=== PATIENT | male | born 1990 | race Caucasian/White ===

== ENCOUNTER 2017-07-04 15:31 | Emergency (ER) | payer SELFPAY ==
--- NOTE | 2017-07-04 15:43 | ED Physician Documentation ---
Sore Throat/Dental Pain - HISTORIAN Historian: patient - HPI Chief Complaint: Dental Pain Context: Abscess, Dental Caries Further Comments: yes (27 year old male patient presents with complaints of dental pain in left bottom molars. Worse over past 2 days.) - ROS CONST: no problems CVS/RESP: none GI/: denies: problems urinating, nausea, vomiting, other MS/SKIN/LYMPH: denies: muscle aches NEURO/PSYCH: none - PAST HX Past History: gum disease Other History: none Allergies/Adverse Reactions: Allergies Allergy/AdvReac Type Severity Reaction Status Date / Time No Known Allergies Allergy Unverified 07/04/17 15:45 Home Medications: Ambulatory Orders Medication Instructions Recorded Mupirocin [Bactroban] 1 appl TP BID #1 tube 07/04/17 ED Results Lab/Radiology - Orders Orders: ED Orders Category Date Time Status Diph,Pertuss(Acell),Tet Vac/Pf [Adacel] Med 07/04/17 15:41 Discontinued 0.5 ml IM .ONCE ONE Lidocaine 1% 5ml(IM or SUTURE) [Xylocaine] Med 07/04/17 15:41 Discontinued 50 mg IJ NOW ONE Discharge Clincal Impression: Dental caries Prescriptions: Mupirocin [Bactroban] 1 appl TP BID #1 tube Referrals: Primary Doctor,No [Primary Care Provider] - 2 Days Additional Instructions: Dental Pain Ibuprofen 800mg every 8 hours x 3 days Tylenol 650-1000mg every 4 hours as needed for pain, limit your dose to 4G in 24 hours. Over the counter DenTek - follow package directions. 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 See your dentist as soon as possible Condition: Stable Disposition: 01 HOME, SELF-CARE Decision to Admit: NO Decision Time: 15:42
[2017-07-04] MEDS: Lidocaine 1% 5ml(IM or SUTURE)(PAIN CLINIC) IJ ONE (16:03)
[2017-07-04] MEDS: DIPH,PERTUSS(ACELL),TET VAC/PF 0.5 ML DISP.SYRIN IM ONE (16:12)
[2017-07-04 16:24] VITALS: BP 120/68
--- NOTE | 2017-07-04 16:55 | ED Physician Documentation ---
General Adult - HISTORIAN Historian: patient - HPI Stated Complaint: Laceration Chief Complaint: Laceration/Recheck/Suture Further Comments: yes (27 year old male patient presents with complaint of left hand laceration. Cut on board on floor of grain bin. Last tetanus unknown.) - ROS CONST: no problems EYES/ENT: none CVS/RESP: none GI/: none MS/SKIN/LYMPH: none NEURO/PSYCH: denies: headache - PAST HX Past History: none Allergies/Adverse Reactions: Allergies Allergy/AdvReac Type Severity Reaction Status Date / Time No Known Allergies Allergy Unverified 07/04/17 15:45 Home Medications: Ambulatory Orders Medication Instructions Recorded Mupirocin [Bactroban] 1 appl TP BID #1 tube 07/04/17 - SOCIAL HX Smoking History: non-smoker - FAMILY HX Family History: No - VITAL SIGNS Vital Signs: Vital Signs Temp Pulse Resp BP Pulse Ox 98.1 F 78 18 120/68 98 07/04/17 15:35 07/04/17 16:22 07/04/17 16:22 07/04/17 16:22 07/04/17 16:22 - REVIEWED ASSESSMENTS Nursing Assessment Reviewed: Yes Vitals Reviewed: Yes Procedures Wound Location: other (left hand) Wound's Depth, Shape: linear Wound Explored: clean Irrigated w/ Saline (ccs): 500 Betadine Prep?: No Anesthesia: Other (chlorhexadine) Volume of Anesthetic: 5cc Wound Repaired With: sutures Suture Size/Type: 5:0 Number of Sutures: 6 Layer Closure?: No Sterile Dressing Applied?: Yes Progress - Progress Progress: Wound cleaned with chlorhexadine; anesthetized with 1% lidocaine and neut - 5 cc. Irrigated with 500cc NS, hand scrubbed clean. Patient tolerated procedure well. Edges well approximated. Reviewed discharge instructions, verbalized understanding. ED Results Lab/Radiology - Orders Orders: ED Orders Category Date Time Status Apply/change dressing NOW Care 07/04/17 16:11 Active Diph,Pertuss(Acell),Tet Vac/Pf [Adacel] Med 07/04/17 15:41 Discontinued 0.5 ml IM .ONCE ONE Lidocaine 1% 5ml(IM or SUTURE) [Xylocaine] Med 07/04/17 15:41 Discontinued 50 mg IJ NOW ONE General Adult Physical Exam - PHYSICAL EXAM GENERAL APPEARANCE: mild distress EENT: eye inspection normal, SONYA RESPIRATORY: no resp distress CVS: reg rate & rhythm SKIN: warm/dry, normal color, other (left hand with 4 cm laceration to dorsal aspect) EXTREMITIES: non-tender, normal range of motion, no evidence of injury, no edema , J, FIRE [employer]ARD[employer] NEURO: oriented X3, motor nml, sensation nml, mood/affect nml Discharge Clincal Impression: Laceration of hand Qualifiers: Encounter type: initial encounter Foreign body presence: without foreign body Laterality: left Qualified Code(s): S61.412A - Laceration without foreign body of left hand, initial encounter Clincal Impression: (Ruled Out): Dental caries Prescriptions: Mupirocin [Bactroban] 1 appl TP BID #1 tube Additional Instructions: Keep the wound clean and dry until it has healed. You can wash or shower after 24 hours. Do not soak the wound in water and make sure it is dry afterwards (gently pat the area dry with a clean towel). Do not get into a swimming pool, hot tub, jade or river until your stitches are removed. To remove your dressing, gently pull it off. If needed, you can dampen it with water then gently pull it off. Clean the laceration twice a day with hibiclens and rinse with water clean away any scabbed area Apply thin coat of antibiotic ointment after cleaning the wound. Cover with non-adherent bandage if able. If you have pain, take simple pain relief medication such as Tylenol or ibuprofen. If bandages or dressings get wet, they will need to be changed. Call your doctor for any signs of symptom of infection redness, drainage, pain. Have your stitches removed at your doctors office in 7-10 days. Discharged with bactroban ointment apply a thin coat twice a day. Condition: Stable Disposition: 01 HOME, SELF-CARE Decision to Admit: NO Decision Time: 16:20
== END 2017-07-04 16:22 | disposition home or self-care (01) ==
LOC: ED 15:31
DX: S61.412A Laceration without foreign body of left hand, initial encounter (principal); X58.XXXA Exposure to other specified factors, initial encounter; Y93.9 Activity, unspecified; Y99.9 Unspecified external cause status
CPT/HCPCS: 12002; 90471; 90715; 99283